=== PATIENT | male | born 1985 | race American Indian/Alaskan Native ===

== ENCOUNTER 2016-08-28 16:49 | Emergency (ER) | payer MEDICAID, OTHER ==
[2016-08-28] MEDS ORDERED: Tetracaine HCl/PF 0.5% 4 ML Bottle EYELF ONE (16:52)
[2016-08-28 17:14] VITALS: BP 131/89
--- NOTE | 2016-08-28 17:41 | EDM.PDOC ---
ED HPI EYE COMPLAINT - General Chief Complaint: ENT Problem Stated Complaint: LT EYE PAIN Time Seen by Provider: 08/28/16 17:27 Source: Reports: Patient, RN notes reviewed History Limitations: Reports: No limitations - History of Present Illness INITIAL COMMENTS - FREE TEXT/NARRATIVE: 31-year-old gentleman presents emergency department for a complaint of pain in his left eye, he was actually injured by his 2-year-old daughter who accidentally stuck her finger in his eye this happened about 6 hours prior - Related Data Allergies/ADRs: Allergies No Known Allergies Allergy (Verified 08/28/16 17:18) Home Meds: Ambulatory Orders Medication Instructions Recorded Confirmed NK [No Known Home Meds] 04/21/13 08/28/16 Past Medical History Musculoskeletal History: Reports: Fracture Neurological History: Reports: Concussion - Infectious Disease History Infectious Disease History: Reports: Chicken pox - Past Surgical History GI Surgical History: Reports: Appendectomy Social & Family History - Family History Family Medical History: Unobtainable - Tobacco Use Smoking Status *Q: Never Smoker Years of Tobacco use: 10 Packs/Tins Daily: 0.1 Second Hand Smoke Exposure: Yes - Caffeine Use Caffeine Use: Reports: None - Alcohol Use Days Per Week of Alcohol Use: 0 - Recreational Drug Use Recreational Drug Use: No Recreational Drug Type: Reports: Marijuana/Hashish ED ROS GENERAL - Review of Systems Review Of Systems: See Below Constitutional: Reports: no symptoms HEENT: Reports: Eye discharge, Eye pain ED EXAM GENERAL W FULL EYE - Physical Exam Exam: See Below Exam Limited By: No limitations General Appearance: alert, WD/WN, no apparent distress Eye Exam: left eye: conjunctival injection, corneal abrasion, bilateral eye: EOMI, normal inspection Visual acuity (R) 20/: 25 Visual acuity (L) 20/: 40 With Correction: No Eyelids: bilateral: normal appearance Conjunctiva & Sclera: right: normal appearance, left: injected Cornea Exam: left: corneal abrasion Extraocular Movements: bilateral: intact Pupils: normal accommodation Pupillary Size: bilateral: 4 mm Pupillary Reaction: bilateral: brisk Anterior Chamber: bilateral: normal appearance Course - Vital Signs Last Recorded V/S: Last Vital Signs Temp 97.7 F 08/28/16 17:17 Pulse 67 08/28/16 17:17 Resp 18 08/28/16 17:17 BP 131/89 08/28/16 17:17 Pulse Ox 99 08/28/16 17:17 - Orders/Labs/Meds Meds: Medications Discontinued Medications Generic Name Dose Route Start Last Admin Trade Name Shanda PRN Reason Stop Dose Admin Tetracaine HCl 1 ml 08/28/16 16:52 08/28/16 17:19 Tetracaine 0.5% Steri-Unit Jaylyn EYELF 08/28/16 16:53 2 drop ASDIRECTED ONE Administration Departure - Departure Time of Disposition: 17:40 Disposition: Home, Self-Care 01 Condition: good Clinical Impression: Corneal abrasion, left Qualifiers: Encounter type: initial encounter Qualified Code(s): S05.02XA - Injury of conjunctiva and corneal abrasion without foreign body, left eye, initial encounter Forms: ED Department Discharge Additional Instructions: Continue using antibiotics until clear, use hydrocodone as needed for pain control, please followup with your eye care provider in the next 2-3 days for reevaluation - Assessment/Plan Plan: Assessment Acuity = acute Site and laterality = left corneal abrasion Etiology = secondary to trauma Manifestations = none Location of injury = [ home Lab values = none Plan Last tetanus was in 2014 abrasion was appreciated across the cornea as well as lower lateral aspect of the sclera linear, placed on gentamicin ophthalmic drops , hydrocodone for pain, followup care provider in the next 2-3 days for reevaluation Patient was in agreement with the plan all questions were answered, they were instructed to return to the emergency department or call for worsening symptoms. This note was dictated using [employer] voice recognition software please call with any questions.
== END 2016-08-28 17:52 | disposition home or self-care (01) ==
LOC: JP.ED 16:49
DX: S05.02XA Injury of conjunctiva and corneal abrasion without foreign body, left eye, initial encounter (principal); Z90.49 Acquired absence of other specified parts of digestive tract
CPT/HCPCS: 99283; A9270

== ENCOUNTER 2016-09-23 05:33 | Day surgery (SDC) | payer MEDICAID, OTHER ==
[2016-09-23] MEDS ORDERED: Dextrose 5%-Lactated Ringers 1,000 ML IV SCH (06:15)
[2016-09-23] MEDS ORDERED: Propofol 200 MG/20 ML SDV ONE ×3 (07:25→08:06)
[2016-09-23] MEDS ORDERED: fentaNYL 100 MCG/2 ML SDV ONE (07:52)
[2016-09-23] MEDS ORDERED: Midazolam 1 MG/ML 2 ML SDV ONE (07:52)
[2016-09-23 09:44] VITALS: BP 113/71
--- NOTE | 2016-09-26 13:43 | OR ---
DATE OF PROCEDURE: 09/23/2016 PREOPERATIVE DIAGNOSIS: Recent episodes of bright red blood per rectum. POSTOPERATIVE DIAGNOSIS: Excoriated mixed hemorrhoids likely accounting for rectal bleeding. OPERATIVE PROCEDURE: Flexible colonoscopy. ANESTHESIA: IV sedation. INDICATION FOR PROCEDURE: This is a 31-year-old referred for colonoscopy. He is felt most likely to have a rectal bleeding secondary to hemorrhoids, but other sources need to be ruled out as well as evaluation of the hemorrhoids in terms of management. Potential risks including bleeding and perforation were discussed, and the patient wishes to proceed. DETAILS OF PROCEDURE: The patient was taken to the operating room and placed in a left lateral decubitus position. IV sedation was administered, after which the initial digital rectal exam was performed and was unremarkable. Colonoscope was then passed into the rectum. Retroflexion revealed excoriated mixed hemorrhoids. There was no focal hemorrhoid that might be the obvious culprit in terms of bleeding with the entire anal canal being somewhat excoriated. No active bleeding was seen, but certainly the appearance would be such that these would be hemorrhoids that would occasionally bleed. The scope was then eventually passed to the cecum. The prep was good. There were no additional abnormalities noted. There were no areas of diverticula, no areas of colitis, and no polyps or other signs of neoplasia. The scope was then withdrawn. The above findings reconfirmed. The patient at this point would be a poor surgical candidate. On questioning the patient and his girlfriend, he has some problems with constipation often having to strain 20 minutes to get a bowel movement going. This was probably the underlying problem. We started him on Colace 100 mg two tablets a day, and also recommend using preparation H with hydrocortisone, but when he feels hemorrhoids becoming inflamed, i.e. feeling some hemorrhoidal type discomfort, otherwise maximize amount of fiber in the diet as well as hydration. The patient will be following up with Dr. Danielle at [facility] in 1 month. Kosta Petersen MD /[id number]
== END 2016-09-23 09:35 | disposition home or self-care (01) ==
LOC: JP.SDS 05:33
PROVIDERS: ATTEND Surgery
DX: K64.4 Residual hemorrhoidal skin tags (principal)
CPT/HCPCS: 45378; J2250; J2704; J3010; J7042

== ENCOUNTER 2017-11-07 04:12 | Emergency (ER) | payer MEDICAID ==
[2017-11-07 04:32] VITALS: BP 136/91
--- NOTE | 2017-11-07 04:40 | EDM.PDOC ---
ED HPI GENERAL MEDICAL PROBLEM - General Chief Complaint: Skin Complaint Stated Complaint: LUMP ON RIGHT ARM Time Seen by Provider: 11/07/17 04:25 Source of Information: Reports: Patient History Limitations: Reports: No Limitations - History of Present Illness INITIAL COMMENTS - FREE TEXT/NARRATIVE: 32-year-old male who has a lump that is painful on his right forearm. It's been present for 3 days, seemed to get better yesterday but today now it's getting worse again. No trauma, no bite that he knows of. Quality: Reports: Ache, Stabbing Severity: Moderate Worsens with: Reports: Other (Palpation of the area is painful) Associated Symptoms: Reports: No Other Symptoms Right Arm Pain Score (Numeric/FACES): 4 - Related Data Allergies Allergy/AdvReac Type Severity Reaction Status Date / Time No Known Allergies Allergy Verified 09/23/16 05:47 Home Meds: Home Meds Hydrocortisone Acetate [Anusol-Hc] 25 mg RC BID 09/20/16 [History] Polyethylene Glycol 3350 [Miralax] 17 gm PO DAILY PRN 09/20/16 [History] Past Medical History HEENT History: Reports: Otitis Media Gastrointestinal History: Reports: Hemorrhoids Musculoskeletal History: Reports: Fracture Neurological History: Reports: Concussion Psychiatric History: Reports: Anxiety, Depression Endocrine/Metabolic History: Reports: Obesity/BMI 30+ - Infectious Disease History Infectious Disease History: Reports: Chicken Pox - Past Surgical History HEENT Surgical History: Reports: Oral Surgery GI Surgical History: Reports: Appendectomy Social & Family History - Family History Family Medical History: Noncontributory - Tobacco Use Smoking Status *Q: Current Some Day Smoker Years of Tobacco use: 12 Packs/Tins Daily: 0.5 - Caffeine Use Caffeine Use: Reports: Soda - Recreational Drug Use Recreational Drug Use: No ED ROS GENERAL - Review of Systems Review Of Systems: See Below Constitutional: Denies: Fever, Chills Respiratory: Denies: Shortness of Breath Cardiovascular: Denies: Chest Pain GI/Abdominal: Denies: Abdominal Pain, Nausea, Vomiting ED EXAM, SKIN/RASH Exam: See Below Exam Limited By: No Limitations General Appearance: Alert, No Apparent Distress Respiratory/Chest: No Respiratory Distress Extremities: Other (Exam is otherwise limited to the right arm. On the extensor surface of the forearm the patient has a 3-4 cm wide somewhat raised and tender reddened area where he has developed a subcutaneous infection. There is no fluctuance.) Course - Vital Signs Last Recorded V/S: Last Vital Signs Temp 97.8 F 11/07/17 04:21 Pulse 73 11/07/17 04:21 Resp 16 11/07/17 04:21 BP 136/91 H 11/07/17 04:31 Pulse Ox 99 11/07/17 04:21 - Re-Assessments/Exams Free Text/Narrative Re-Assessment/Exam: 11/07/17 04:39 Patient was placed on Bactrim DS twice a day for the next 7-10 days, encouraged moist heat compresses and also given some naproxen. He'll return in the next 48- 72 hours if worsening despite treatment for an I&D. Departure - Departure Time of Disposition: 04:45 Disposition: Home, Self-Care 01 Condition: Good Clinical Impression: Abscess - Discharge Information Instructions: Skin Abscess, [id number] Referrals: Abhi Danielle MD [Primary Care Provider] - Forms: ED Department Discharge Care Plan Goals: Take antibiotic twice daily for at least 7 days, warm compresses to the area will help and use anti-inflammatory pain medication as prescribed. Return in the next 48-72 hours if worsening despite treatment.
== END 2017-11-07 04:46 | disposition home or self-care (01) ==
LOC: JP.ED 04:12
DX: L02.413 Cutaneous abscess of right upper limb (principal); F17.210 Nicotine dependence, cigarettes, uncomplicated; F41.9 Anxiety disorder, unspecified; F32.9 Major depressive disorder, single episode, unspecified; Z79.899 Other long term (current) drug therapy
CPT/HCPCS: 99283

== ENCOUNTER 2017-11-10 02:33 | Emergency (ER) | payer MEDICAID ==
[2017-11-10] MEDS ORDERED: Lidocaine 1% 20 ML MDV INJECT ONE (02:41)
[2017-11-10 03:05] VITALS: BP 143/89
[2017-11-10] MEDS ORDERED: Bacitracin Oint 1 GM U/D Packet TOP ONE (03:12)
--- NOTE | 2017-11-10 03:13 | EDM.PDOC ---
ED HPI GENERAL MEDICAL PROBLEM - General Chief Complaint: Skin Complaint Stated Complaint: LUMP ON RIGHT ARM Time Seen by Provider: 11/10/17 02:50 Source of Information: Reports: Patient History Limitations: Reports: No Limitations - History of Present Illness INITIAL COMMENTS - FREE TEXT/NARRATIVE: 32-year-old with a persistent red lump on his right forearm. He was seen 3 nights ago and started on Bactrim DS. Despite taking the antibiotic and using warm compresses, it is persistent and he thinks it is getting redder and somewhat more tender. It is not getting larger. No fevers or chills. Onset: Gradual Location: Reports: Upper Extremity, Right Severity: Mild Associated Symptoms: Reports: No Other Symptoms Right Arm Pain Score (Numeric/FACES): 3 - Related Data Allergies Allergy/AdvReac Type Severity Reaction Status Date / Time No Known Allergies Allergy Verified 11/10/17 02:35 Home Meds: Home Meds Naproxen [Naprosyn] 500 mg PO BID 11/10/17 [History] Sulfamethoxazole/Trimethoprim [Bactrim Ds Tablet] 1 each PO BID 11/10/17 [ History] Past Medical History HEENT History: Reports: Otitis Media Gastrointestinal History: Reports: Hemorrhoids Musculoskeletal History: Reports: Fracture Neurological History: Reports: Concussion Psychiatric History: Reports: Anxiety, Depression Endocrine/Metabolic History: Reports: Obesity/BMI 30+ - Infectious Disease History Infectious Disease History: Reports: Chicken Pox - Past Surgical History HEENT Surgical History: Reports: Oral Surgery GI Surgical History: Reports: Appendectomy Social & Family History - Family History Family Medical History: Noncontributory - Tobacco Use Smoking Status *Q: Current Every Day Smoker Years of Tobacco use: 12 Packs/Tins Daily: 0.5 Used Tobacco, but Quit: No Second Hand Smoke Exposure: No - Caffeine Use Caffeine Use: Reports: Energy Drinks - Recreational Drug Use Recreational Drug Use: No ED ROS GENERAL - Review of Systems Review Of Systems: See Below Constitutional: Denies: Fever Respiratory: Denies: Shortness of Breath Cardiovascular: Denies: Chest Pain GI/Abdominal: Denies: Nausea, Vomiting Skin: Reports: Erythema Neurological: Reports: Other (Some shooting pains are going up the forearm and the elbow) ED EXAM, SKIN/RASH Exam: See Below Exam Limited By: No Limitations General Appearance: Alert, No Apparent Distress Respiratory/Chest: No Respiratory Distress Extremities: Other ( exam of the right arm reveals a 3 cm wide raised firm red and tender area on the forearm, extensor surface which looks similar to what it looked like 3 nights ago. Still no fluctuance.) Course - Vital Signs Last Recorded V/S: Last Vital Signs Temp 97.7 F 11/10/17 02:43 Pulse 70 11/10/17 02:43 Resp 16 11/10/17 02:43 BP 143/89 H 11/10/17 02:43 Pulse Ox 98 11/10/17 02:43 - Orders/Labs/Meds Orders: Active Orders 24 hr Category Date Time Status CULTURE WOUND + SMEAR [RM] Stat Lab 11/10/17 03:19 Ordered Meds: Medications Discontinued Medications Generic Name Dose Route Start Last Admin Trade Name Shanda PRN Reason Stop Dose Admin Bacitracin 1 dose 11/10/17 03:12 11/10/17 03:16 Bacitracin Oint 1 Gm TOP 11/10/17 03:13 1 dose ONETIME ONE Administration Lidocaine HCl 20 ml 11/10/17 02:41 11/10/17 03:00 Xylocaine 1% INJECT 11/10/17 02:42 20 ml ONETIME ONE Administration - Re-Assessments/Exams Free Text/Narrative Re-Assessment/Exam: 11/10/17 03:10 The area was sterilized, infiltrated with 1% lidocaine and a #11 scalpel was used to incise the swollen area. A curved sterile clamp was use to open the underlying tissue. Despite pressure to the area no significant discharge was expelled. A culture was obtained of the initial blood expelled from the wound. Augmentin will be added, topical bacitracin and a dressing was applied to the wound and he was also given 10 hydrocodone for extra pain control. I encouraged him to recheck at the clinic in 2-4 days if not improving for a surgical consult. Departure - Departure Time of Disposition: 03:24 Disposition: Home, Self-Care 01 Condition: Good Clinical Impression: Cellulitis Qualifiers: Site of cellulitis: extremity Site of cellulitis of extremity: upper extremity Laterality: right Qualified Code(s): L03.113 - Cellulitis of right upper limb - Discharge Information Instructions: Cellulitis, Adult Referrals: PCP,None [Primary Care Provider] - Forms: ED Department Discharge Care Plan Goals: Take a regular dose of ibuprofen or naproxen and add stronger pain medication if needed. Start Augmentin twice daily with food and continue Bactrim as well. Warm compresses to the area should help. Consider rechecking with surgery in the clinic in 3-4 days if not improving. - My Orders Last 24 Hours: My Active Orders 11/10/17 03:19 CULTURE WOUND + SMEAR [RM] Stat - Assessment/Plan Last 24 Hours: My Active Orders 11/10/17 03:19 CULTURE WOUND + SMEAR [RM] Stat
== END 2017-11-10 03:24 | disposition home or self-care (01) ==
LOC: JP.ED 02:33
DX: L03.113 Cellulitis of right upper limb (principal); F17.210 Nicotine dependence, cigarettes, uncomplicated; F41.9 Anxiety disorder, unspecified; F32.9 Major depressive disorder, single episode, unspecified
CPT/HCPCS: 10060; 87070; 87205; 99284-25

== ENCOUNTER 2018-08-21 15:02 | Emergency (ER) | payer MEDICAID ==
[2018-08-21 15:59] VITALS: BP 130/73
--- NOTE | 2018-08-21 16:44 | EDM.PDOC ---
ED HPI GENERAL MEDICAL PROBLEM - General Chief Complaint: Chest Pain Stated Complaint: CHEST PAINS Time Seen by Provider: 08/21/18 15:47 Source of Information: Reports: Patient History Limitations: Reports: No Limitations - History of Present Illness INITIAL COMMENTS - FREE TEXT/NARRATIVE: This gentleman comes in complaining of chest pain. It's been going on for 3 weeks it's in the chest kind of the left sternal border area and the area of the left scapula. The last time he had it was 5 minutes ago. The pain comes on suddenly. When he takes a deep breath sometimes it's like a jolt sometimes like electrical then it seems to settle in the area of the scapula. He denies any kind of neck problems. He's not short of breath not having any kind of palpitations. His pain happens several times a day. - Related Data Allergies Allergy/AdvReac Type Severity Reaction Status Date / Time No Known Allergies Allergy Verified 11/10/17 02:35 Home Meds: Home Meds NK [No Known Home Meds] 08/21/18 [History] Past Medical History HEENT History: Reports: Otitis Media Gastrointestinal History: Reports: Hemorrhoids Musculoskeletal History: Reports: Fracture Neurological History: Reports: Concussion Psychiatric History: Reports: Anxiety, Depression Endocrine/Metabolic History: Reports: Obesity/BMI 30+ - Infectious Disease History Infectious Disease History: Reports: Chicken Pox - Past Surgical History HEENT Surgical History: Reports: Oral Surgery GI Surgical History: Reports: Appendectomy Social & Family History - Family History Family Medical History: Noncontributory - Tobacco Use Smoking Status *Q: Former Smoker Used Tobacco, but Quit: Yes Month/Year Tobacco Last Used: july - Caffeine Use Caffeine Use: Reports: Energy Drinks ED ROS GENERAL - Review of Systems Review Of Systems: See Below Constitutional: Reports: No Symptoms HEENT: Reports: No Symptoms Respiratory: Reports: No Symptoms Cardiovascular: Reports: Chest Pain Endocrine: Reports: No Symptoms GI/Abdominal: Reports: No Symptoms : Reports: No Symptoms ED EXAM, GENERAL - Physical Exam Exam: See Below Exam Limited By: No Limitations General Appearance: Alert, WD/WN, No Apparent Distress Eye Exam: Bilateral Eye: Normal Inspection Neck: Normal Inspection, Full Range of Motion Respiratory/Chest: Lungs Clear, Chest Non-Tender Cardiovascular: Regular Rate, Rhythm, No Murmur GI/Abdominal: Non-Tender Extremities: Normal Inspection Neurological: Alert, Oriented, No Motor/Sensory Deficits Psychiatric: Normal Affect Skin Exam: Warm, Dry Course - Vital Signs Last Recorded V/S: Last Vital Signs Temp 36.5 C 08/21/18 15:40 Pulse 71 08/21/18 15:48 Resp 14 08/21/18 15:40 BP 130/73 08/21/18 15:48 Pulse Ox 97 08/21/18 15:48 - Orders/Labs/Meds Orders: Active Orders 24 hr Category Date Time Status EKG Documentation Completion [RC] ASDIRECTED Care 08/21/18 15:58 Active Chest 2V [CR] Urgent Exams 08/21/18 15:57 Taken EKG 12 Lead [EK] Urgent Ther 08/21/18 15:57 Ordered - Radiology Interpretation Free Text/Narrative:: Chest x-ray shows normal heart size normal lung markings normal bony and soft tissues - Re-Assessments/Exams Free Text/Narrative Re-Assessment/Exam: 08/21/18 17:05 EKG shows sinus rhythm at 68 bpm there is a RSR' in V1 and V2 suggesting right ventricular conduction delay. There is about a half to [address] depression in lead V2 only which is indicative of early repolarization. Nothing on this EKG looks ischemic. Departure - Departure Time of Disposition: 16:43 Disposition: Home, Self-Care 01 Condition: Good, Fair Clinical Impression: Non-cardiac chest pain Referrals: PCP,None [Primary Care Provider] - Forms: ED Department Discharge Additional Instructions: The type of chest pain you're having appears to be not related to your heart. Most likely it is from some irritation of the nerves that go to the pectoral muscles shoulder and shoulder blade. They can cause a jolt or electric-like pain that that comes on very rapidly and generally last just a short while. Prednisone 40 mg daily for 5 days will help relieve inflammation. Also take ibuprofen 400 mg 3 times a day. That can cause stomach upset and eventually ulcers if taken long enough. This problem should go away by itself but if it continues or gets worse feel free to return to the ER or follow-up with your Dr. - My Orders Last 24 Hours: My Active Orders 08/21/18 15:57 Chest 2V [CR] Urgent EKG 12 Lead [EK] Urgent 08/21/18 15:58 EKG Documentation Completion [RC] ASDIRECTED - Assessment/Plan Last 24 Hours: My Active Orders 08/21/18 15:57 Chest 2V [CR] Urgent EKG 12 Lead [EK] Urgent 08/21/18 15:58 EKG Documentation Completion [RC] ASDIRECTED
--- NOTE | 2018-08-21 17:33 | CRLCR ---
INDICATION: Pain TECHNIQUE: Chest 2 views COMPARISON: 04/29/2016 FINDINGS: Cardiovascular and mediastinum: Heart size and vasculature are normal in caliber and appearance. Lungs and pleural spaces: Lungs are clear. No sign of infiltrate or mass. No sign of pleural effusion. No pneumothorax. Bones and soft tissues: No significant findings. IMPRESSION: No acute findings and no significant changes from the prior exam. Dictated by Buck Scott MD @ 08/21/2018 5:32:17 PM Dictated by: Buck Scott MD @ 08/21/2018 17:32:20 (Electronically Signed)
== END 2018-08-21 17:26 | disposition home or self-care (01) ==
LOC: JP.ED 15:02
DX: R07.89 Other chest pain (principal); F41.9 Anxiety disorder, unspecified; F32.9 Major depressive disorder, single episode, unspecified; Z87.891 Personal history of nicotine dependence
CPT/HCPCS: 71046; 93005; 99285-25

== ENCOUNTER 2019-10-03 21:25 | Emergency (ER) | payer MEDICAID ==
[2019-10-03 21:36] VITALS: BP 168/109; PULSE 92
--- NOTE | 2019-10-03 22:54 | EDM.PDOC ---
ED HPI GENERAL MEDICAL PROBLEM - General Chief Complaint: Abdominal Pain Stated Complaint: ABDOMINAL PAIN Time Seen by Provider: 10/03/19 21:45 Source of Information: Reports: Patient History Limitations: Reports: No Limitations - History of Present Illness INITIAL COMMENTS - FREE TEXT/NARRATIVE: 34-year-old male who is been having some ongoing abdominal issues for the past several weeks. He saw primary care provider at the clinic and had a good work- up including a CT scan with oral and IV contrast which showed some possible changes consistent with colitis but not specific. It was recommended he start some oral antacids on a regular basis but he decided he did not want to. He continues to feel fullness, pressure around his abdomen, urged to defecate at times and intermittent nausea but no fevers or chills, no radiation of pain to the back, no weight loss. I am not sure why he did not try the antacid. He plans on later this week going to [facility] for "another opinion". Onset: Gradual Duration: Week(s): (Symptoms have been waxing and waning for weeks) Location: Reports: Abdomen (Especially upper abdomen) Associated Symptoms: Reports: Malaise, Nausea/Vomiting. Denies: Fever/Chills - Related Data Allergies Allergy/AdvReac Type Severity Reaction Status Date / Time No Known Allergies Allergy Verified 10/03/19 21:40 Home Meds: Home Meds NK [No Known Home Meds] 08/21/18 [History] Past Medical History HEENT History: Reports: Otitis Media Gastrointestinal History: Reports: Hemorrhoids Musculoskeletal History: Reports: Fracture Neurological History: Reports: Concussion Psychiatric History: Reports: Anxiety, Depression Endocrine/Metabolic History: Reports: Obesity/BMI 30+ - Infectious Disease History Infectious Disease History: Reports: Chicken Pox - Past Surgical History HEENT Surgical History: Reports: Oral Surgery GI Surgical History: Reports: Appendectomy Social & Family History - Family History Family Medical History: Noncontributory - Tobacco Use Smoking Status *Q: Former Smoker Used Tobacco, but Quit: No - Caffeine Use Caffeine Use: Reports: Energy Drinks ED ROS GENERAL - Review of Systems Review Of Systems: See Below Constitutional: Reports: Malaise. Denies: Fever, Chills HEENT: Reports: No Symptoms Respiratory: Denies: Shortness of Breath Cardiovascular: Denies: Chest Pain GI/Abdominal: Reports: Abdominal Pain, Nausea. Denies: Constipation, Diarrhea, Vomiting : Reports: No Symptoms Musculoskeletal: Reports: No Symptoms Skin: Reports: No Symptoms Neurological: Reports: No Symptoms Psychiatric: Reports: No Symptoms ED EXAM, GI/ABD - Physical Exam Exam: See Below Exam Limited By: No Limitations General Appearance: Alert, No Apparent Distress Eyes: Bilateral: Normal Appearance (No jaundice) Head: Atraumatic Neck: Normal Inspection Respiratory/Chest: No Respiratory Distress, Lungs Clear Cardiovascular: Regular Rate, Rhythm GI/Abdominal Exam: Normal Bowel Sounds, Soft, Non-Tender Extremities: Normal Inspection Neurological: Alert, Oriented Psychiatric: Normal Affect, Normal Mood Skin Exam: Warm, Dry Course - Vital Signs Last Recorded V/S: Last Vital Signs Temp 97.2 F 10/03/19 21:47 Pulse 92 10/03/19 21:47 Resp 16 10/03/19 21:47 BP 168/109 H 10/03/19 21:47 Pulse Ox 97 10/03/19 21:47 - Orders/Labs/Meds Labs: Laboratory Tests 10/03/19 10/03/19 Range/Units 22:12 22:12 WBC 12.0 H (4.5-11.0) K/uL RBC 5.42 (4.30-5.90) M/uL Hgb 16.0 H (12.0-15.0) g/dL Hct 47.5 (40.0-54.0) % MCV 88 (80-98) fL MCH 30 (27-31) pg MCHC 34 (32-36) % Plt Count 298 (150-400) K/uL Neut % (Auto) 54 (36-66) % Lymph % (Auto) 33 (24-44) % [place] % (Auto) 8 H (2-6) % Eos % (Auto) 5 H (2-4) % Baso % (Auto) 0 (0-1) % ESR 3 (0-20) mm/hr Sodium 139 L (140-148) mmol/L Potassium 3.8 (3.6-5.2) mmol/L Chloride 104 (100-108) mmol/L Carbon Dioxide 22 (21-32) mmol/L Anion Gap 16.8 H (5.0-14.0) mmol/L BUN 13 (7-18) mg/dL Creatinine 1.0 (0.8-1.3) mg/dL Est Cr Clr Drug Dosing 116.40 mL/min Estimated GFR (MDRD) > 60 (>60) Glucose 107 H (74-106) mg/dL Calcium 8.6 (8.5-10.1) mg/dL Total Bilirubin 0.4 (0.2-1.0) mg/dL AST 26 (15-37) U/L ALT 53 (12-78) U/L Alkaline Phosphatase 74 (46-116) U/L C-Reactive Protein 0.05 (0.0-0.3) mg/dL Total Protein 7.7 (6.4-8.2) g/dL Albumin 4.3 (3.4-5.0) g/dL Globulin 3.4 (2.3-3.5) g/dL Albumin/Globulin Ratio 1.3 (1.2-2.2) Amylase 50 (25-115) U/L Lipase 196 (73-393) U/L - Re-Assessments/Exams Free Text/Narrative Re-Assessment/Exam: 10/03/19 22:[address] report from 2 weeks ago. CBC, CMP, amylase, lipase, CRP and sed rate were obtained. Patient remained comfortable while in the emergency room and all his labs returned reassuring. CRP was 0.05, all liver enzymes are normal, hemoglobin was normal and white count was 12,500. Sed rate was 3. I told the patient he can get another opinion but nothing will be done until he at least give us omeprazole or a similar medicine a good try so he agreed to do that for the next 2 to 3 weeks. Departure - Departure Time of Disposition: 23:02 Disposition: Home, Self-Care 01 Clinical Impression: Abdominal pain Qualifiers: Abdominal location: upper abdomen, unspecified Qualified Code(s): R10.10 - Upper abdominal pain, unspecified - Discharge Information Instructions: Abdominal Pain, Adult, [id number] Referrals: PCP,None [Primary Care Provider] - Forms: ED Department Discharge Care Plan Goals: Take 40 mg of omeprazole daily for at least 2 consecutive weeks, then recheck if not improving satisfactorily. Return sooner if worsening such as fever or increased pain despite treatment. Sepsis Event Note - Evaluation Sepsis Screening Result: No Definite Risk - Focused Exam Vital Signs: Vital Signs Temp Pulse Resp BP Pulse Ox 05/03/20 21:47 97.2 F 92 16 168/109 H 97 10/03/19 21:35 97.2 F 92 16 168/109 H 97 Date Exam was Performed: 10/03/19 Time Exam was Performed: 23:11
== END 2019-10-03 23:02 | disposition home or self-care (01) ==
LOC: JP.ED 21:25
DX: R10.10 Upper abdominal pain, unspecified (principal); E66.9 Obesity, unspecified; Z68.38 Body mass index [BMI] 38.0-38.9, adult; Z87.891 Personal history of nicotine dependence
CPT/HCPCS: 36415; 80053; 82150; 83690; 85025; 85651; 86140; 99283; 99284

== ENCOUNTER 2020-03-28 16:49 | Emergency (ER) | payer MEDICAID ==
[2020-03-28] MEDS ORDERED: Ketorolac 60 MG/2 ML SDV IM ONE (18:18)
[2020-03-28] MEDS ORDERED: Cyclobenzaprine 10 MG Tab PO ONE (18:18)
--- NOTE | 2020-03-28 18:21 | EDM.PDOC ---
ED HPI GENERAL MEDICAL PROBLEM - General Chief Complaint: Headache Stated Complaint: HEADACH FOR 3 DAYS,BLURRED VISION Time Seen by Provider: 03/28/20 18:11 Source of Information: Reports: Patient, RN Notes Reviewed History Limitations: Reports: No Limitations - History of Present Illness INITIAL COMMENTS - FREE TEXT/NARRATIVE: 34-year-old gentleman presents emergency department with a complaint of headache, he states had this headache for about 3 days it is predominantly on the left side of his head there is some tension down into his neck when the pain does, he has problems with his vision the light does bother him no nausea or vomiting no problems with sound, no history of migraines no family history of migraines, he is not been doing anything at work that would exacerbate this pain. He has taken 2 Tommie aspirin for pain control Headache Pain Score (Numeric/FACES): 5 - Related Data Allergies Allergy/AdvReac Type Severity Reaction Status Date / Time No Known Allergies Allergy Verified 10/03/19 21:40 Home Meds: Home Meds Omeprazole 40 mg PO DAILY 03/28/20 [History] Past Medical History HEENT History: Reports: Otitis Media Gastrointestinal History: Reports: Diverticulosis, Hemorrhoids, Other (See Below) Other Gastrointestinal History: intestine infection Musculoskeletal History: Reports: Fracture Neurological History: Reports: Concussion Psychiatric History: Reports: Anxiety, Depression Endocrine/Metabolic History: Reports: Obesity/BMI 30+ - Infectious Disease History Infectious Disease History: Reports: Chicken Pox - Past Surgical History HEENT Surgical History: Reports: Oral Surgery GI Surgical History: Reports: Appendectomy Social & Family History - Family History Family Medical History: Noncontributory - Tobacco Use Tobacco Use Status *Q: Current Every Day Tobacco User Years of Tobacco use: 14 Packs/Tins Daily: 0.3 - Caffeine Use Caffeine Use: Reports: None - Recreational Drug Use Recreational Drug Use: No ED ROS GENERAL - Review of Systems Review Of Systems: See Below Constitutional: Denies: Fever, Chills HEENT: Reports: Vision Change (With pain). Denies: Eye Discharge, Eye Pain Respiratory: Reports: No Symptoms Cardiovascular: Reports: No Symptoms GI/Abdominal: Reports: No Symptoms Neurological: Reports: Headache - Physical Exam Exam: See Below Exam Limited By: No Limitations General Appearance: Alert, WD/WN, No Apparent Distress Eye Exam: Bilateral Eye: EOMI, Normal Fundi, Normal Inspection, PERRL Respiratory/Chest: No Respiratory Distress Course - Vital Signs Last Recorded V/S: Last Vital Signs Temp 98.3 F 03/28/20 18:56 Pulse 57 L 03/28/20 18:56 Resp 16 03/28/20 18:56 BP 122/76 03/28/20 18:56 Pulse Ox 99 03/28/20 18:56 - Orders/Labs/Meds Labs: Laboratory Tests 03/28/20 03/28/20 03/28/20 Range/Units 18:32 18:32 18:32 WBC 9.2 (4.5-11.0) K/uL RBC 5.44 (4.30-5.90) M/uL Hgb 16.0 H (12.0-15.0) g/dL Hct 47.1 (40.0-54.0) % MCV 87 (80-98) fL MCH 29 (27-31) pg MCHC 34 (32-36) % Plt Count 300 (150-400) K/uL Neut % (Auto) 65 (36-66) % Lymph % (Auto) 24 (24-44) % [place] % (Auto) 7 H (2-6) % Eos % (Auto) 4 (2-4) % Baso % (Auto) 0 (0-1) % Sodium 139 L (140-148) mmol/L Potassium 3.8 (3.6-5.2) mmol/L Chloride 105 (100-108) mmol/L Carbon Dioxide 26 (21-32) mmol/L Anion Gap 11.8 (5.0-14.0) mmol/L BUN 13 (7-18) mg/dL Creatinine 1.0 (0.8-1.3) mg/dL Est Cr Clr Drug Dosing 116.40 mL/min Estimated GFR (MDRD) > 60 (>60) Glucose 89 (74-106) mg/dL Hemoglobin A1c 5.4 (4.5-6.2) % Calcium 9.0 (8.5-10.1) mg/dL Total Bilirubin 0.5 (0.2-1.0) mg/dL AST 23 (15-37) U/L ALT 53 (12-78) U/L Alkaline Phosphatase 72 (46-116) U/L Total Protein 7.9 (6.4-8.2) g/dL Albumin 4.4 (3.4-5.0) g/dL Globulin 3.5 (2.3-3.5) g/dL Albumin/Globulin Ratio 1.3 (1.2-2.2) Meds: Medications Discontinued Medications Generic Name Dose Route Start Last Admin Trade Name Shanda PRN Reason Stop Dose Admin Cyclobenzaprine HCl 10 mg 03/28/20 18:18 03/28/20 18:33 Flexeril PO 03/28/20 18:19 10 mg ONETIME ONE Administration Ketorolac Tromethamine 60 mg 03/28/20 18:18 03/28/20 18:33 Toradol IM 03/28/20 18:19 60 mg ONETIME ONE Administration Departure - Departure Time of Disposition: 20:35 Disposition: Home, Self-Care 01 Condition: Fair Clinical Impression: Tension headache - Discharge Information Instructions: Tension Headache, Adult, [id number] Referrals: PCP,None [Primary Care Provider] - Forms: ED Department Discharge Additional Instructions: Try Tylenol or Motrin for pain control use the Flexeril as needed for muscle relaxant please followup with your primary care provider in 5-7 days if not better, please call return to the emergency department with worsening of symptoms. Sepsis Event Note (ED) - Evaluation Sepsis Screening Result: No Definite Risk - Focused Exam Vital Signs: Vital Signs Temp Pulse Resp BP Pulse Ox 03/28/20 18:56 98.3 F 57 L 16 122/76 99 03/28/20 17:16 98.5 F 66 16 130/82 99 - Assessment/Plan Plan: Assessment Acuity = acute Site and laterality = tension type headache Etiology = unknown Manifestations = none Location of injury = Home Lab values = CBC, CMP unremarkable hemoglobin A1c normal at 5.4 Plan He had good relief combination Toradol Flexeril was pain-free he is going to continue to use ibuprofen at home prescription written for Flexeril 10 mg 1 tab p.o. 3 times daily as needed total #15, follow-up primary care in 5 to 7 days if not better This note was dictated using [employer] voice recognition software please call with any questions on syntax or grammar.
[2020-03-28 18:45] LABS: HEMOGLOBIN A1C 5.4 % (4.5-6.2)
[2020-03-28 18:57] VITALS: BP 122/76; PULSE 57
== END 2020-03-28 20:41 | disposition home or self-care (01) ==
LOC: JP.ED 16:49
DX: G44.209 Tension-type headache, unspecified, not intractable (principal); F17.210 Nicotine dependence, cigarettes, uncomplicated; E66.9 Obesity, unspecified; Z68.37 Body mass index [BMI] 37.0-37.9, adult; Z79.899 Other long term (current) drug therapy
CPT/HCPCS: 36415; 80053; 83036; 85025; 96372; 99284; A9270; J1885

== ENCOUNTER 2020-11-08 10:52 | Emergency (ER) | payer MEDICAID ==
[2020-11-08 11:29] VITALS: BP 141/79; PULSE 99
--- NOTE | 2020-11-08 12:03 | EDM.PDOC ---
ED HPI GENERAL MEDICAL PROBLEM - General Chief Complaint: Headache Stated Complaint: NECK PAIN HEADACHE Time Seen by Provider: 11/08/20 12:00 Source of Information: Reports: Patient History Limitations: Reports: No Limitations - History of Present Illness INITIAL COMMENTS - FREE TEXT/NARRATIVE: pt arriived with head and neck pain. He has a niece which has menigitis. Onset: Today Duration: Hour(s): Headache Pain Score (Numeric/FACES): 8 - Related Data Allergies Allergy/AdvReac Type Severity Reaction Status Date / Time No Known Allergies Allergy Verified 11/08/20 11:22 Home Meds: Home Meds NK [No Known Home Meds] 11/08/20 [History] Past Medical History HEENT History: Reports: Otitis Media Gastrointestinal History: Reports: Diverticulosis, Hemorrhoids, Other (See Below) Other Gastrointestinal History: intestine infection Musculoskeletal History: Reports: Fracture Neurological History: Reports: Concussion Psychiatric History: Reports: Anxiety, Depression Endocrine/Metabolic History: Reports: Obesity/BMI 30+ - Infectious Disease History Infectious Disease History: Reports: Chicken Pox - Past Surgical History HEENT Surgical History: Reports: Oral Surgery Other HEENT Surgeries/Procedures: wisdom teeth extraction GI Surgical History: Reports: Appendectomy Social & Family History - Family History Family Medical History: No Pertinent Family History - Tobacco Use Tobacco Use Status *Q: Former Tobacco User Used Tobacco, but Quit: Yes Month/Year Tobacco Last Used: 06/2020 - Caffeine Use Caffeine Use: Reports: None - Recreational Drug Use Recreational Drug Use: No ED ROS GENERAL - Review of Systems Review Of Systems: See Below Constitutional: Reports: Other (pt has a severe rt sided headache. ) HEENT: Reports: No Symptoms Respiratory: Reports: No Symptoms Cardiovascular: Reports: No Symptoms Endocrine: Reports: No Symptoms GI/Abdominal: Reports: No Symptoms : Reports: No Symptoms Musculoskeletal: Reports: Neck Pain, Other ( severe headache) Skin: Reports: No Symptoms - Physical Exam Exam: See Below Text/Narrative:: pt is concerned because his niece is very ill with a sinus infection in [place]. He has a tight feeling neck and a headache. he has not had a fever. Exam Limited By: No Limitations General Appearance: Alert, Anxious, Mild Distress Ears: Normal TMs Nose: Normal Inspection Throat/Mouth: Normal Inspection Head Exam: Atraumatic, Other (mild frontal sinus tenderness on the left. ) Neck: Other (mid lne tenderness hiogh in the cervical area. ) Respiratory/Chest: No Respiratory Distress Cardiovascular: Regular Rate, Rhythm GI/Abdominal: Soft, Non-Tender (Male) Exam: Deferred Rectal (Males) Exam: Deferred Neuro Exam (Abbreviated): Alert, Oriented, Normal Cognition Course - Vital Signs Last Recorded V/S: Last Vital Signs Temp 36.9 C 11/08/20 11:29 Pulse 99 11/08/20 11:29 Resp 16 11/08/20 11:29 BP 141/79 H 11/08/20 11:29 Pulse Ox 99 11/08/20 11:29 - Orders/Labs/Meds Orders: Active Orders 24 hr Category Date Time Status Sinus Less 3V [CR] Stat Exams 11/08/20 11:59 Taken Labs: Laboratory Tests 11/08/20 11/08/20 Range/Units 12:08 12:08 WBC 7.4 (4.5-11.0) K/uL RBC 5.00 (4.30-5.90) M/uL Hgb 14.9 (12.0-15.0) g/dL Hct 44.3 (40.0-54.0) % MCV 89 (80-98) fL MCH 30 (27-31) pg MCHC 34 (32-36) % Plt Count 253 (150-400) K/uL Neut % (Auto) 52.7 (36-66) % Lymph % (Auto) 29.2 (24-44) % [place] % (Auto) 9.0 H (2-6) % Eos % (Auto) 8.3 H (2-4) % Baso % (Auto) 0.8 (0-1) % C-Reactive Protein 0.11 (0.0-0.3) mg/dL - Re-Assessments/Exams Free Text/Narrative Re-Assessment/Exam: 11/08/20 13:28 [place] was normal. His wbc was normal. Departure - Departure Time of Disposition: 13:12 Disposition: Home, Self-Care 01 Condition: Fair Clinical Impression: Cervical paraspinal muscle spasm - Discharge Information Instructions: Muscle Cramps and Spasms, [id number] Referrals: PCP,None [Primary Care Provider] - Forms: ED Department Discharge Care Plan Goals: moist warm packs to the posterior cervical area, baclofen 10 mg bid to relax muscles, torodol 10 mg q6h prn for pain. Sepsis Event Note (ED) - Evaluation Sepsis Screening Result: No Definite Risk - Focused Exam Vital Signs: Vital Signs Temp Pulse Resp BP Pulse Ox 11/08/20 11:29 36.9 C 99 16 141/79 H 99 - My Orders Last 24 Hours: My Active Orders 11/08/20 11:59 Sinus Less 3V [CR] Stat - Assessment/Plan Last 24 Hours: My Active Orders 11/08/20 11:59 Sinus Less 3V [CR] Stat
--- NOTE | 2020-11-08 14:09 | CR ---
Sinus Less 3V CLINICAL HISTORY: Head and neck pain FINDINGS: The paranasal sinuses are clear. The visualized airway is patent. No air-fluid levels are seen. There is mild rightward deviation of the nasal septum. IMPRESSION: No radiographic evidence of sinusitis
== END 2020-11-08 13:29 | disposition home or self-care (01) ==
LOC: JP.ED 10:52
DX: M62.838 Other muscle spasm (principal); R51.9 Headache, unspecified; E66.9 Obesity, unspecified; Z68.39 Body mass index [BMI] 39.0-39.9, adult; Z87.891 Personal history of nicotine dependence
CPT/HCPCS: 36415; 85025; 86140; 99283; 99284-25

== ENCOUNTER 2022-01-12 19:55 | Emergency (ER) | payer MEDICAID ==
[2022-01-12] MEDS ORDERED: Sodium Chloride 0.9% 10 ML Syringe FLUSH PRN (20:00)
[2022-01-12] MEDS ORDERED: Sodium Chloride 0.9% 1,000 ML IV SCH ×2 (20:00→21:45)
[2022-01-12] MEDS ORDERED: Ketorolac 30 MG/ML SDV IVPUSH ONE (20:00)
[2022-01-12] MEDS ORDERED: Ondansetron 4 MG/2 ML SDV IVPUSH ONE (20:02)
[2022-01-12 20:32] VITALS: BP 140/99; PULSE 76
[2022-01-12] MEDS ORDERED: Ketorolac 10 MG Tab PO ONE (22:52)
== END 2022-01-12 23:17 | disposition home or self-care (01) ==
LOC: JP.ED 19:55
DX: N20.2 Calculus of kidney with calculus of ureter (principal); E66.9 Obesity, unspecified; Z68.38 Body mass index [BMI] 38.0-38.9, adult
CPT/HCPCS: 36415; 74176; 81001; 85025; 96361; 96374; 96375; 99284; A9270; J1885; J2405; J3490; J7030